=== PATIENT | female | born 1955 | race Caucasian/White ===

== ENCOUNTER → 2017-09-24 | Outpatient (CLI) | payer OTHER ==
--- NOTE | 2017-09-24 11:37 | RAD ---
Thyroid ultrasound 09/24/2017 Clinical indication: Six-month follow-up of right thyroid nodule. Comparison: None. Findings: AP thickness of isthmus: 0.5 cm. There is a hypoechoic nodule at the far left aspect of the isthmus with no internal vascularity measuring 0.4 x 0.4 x 0.3 cm. Left lobe of the thyroid measures 5.4 x 1.7 x 1.7 cm. There is diffuse heterogeneity and hypervascularity throughout the left lobe. At the superior aspect of the left lobe, there is a hypoechoic nodule with punctate echogenicity demonstrating ringdown artifact and no internal vascularity measuring 0.7 x 0.7 x 0.5 cm. Right lobe of the thyroid measures 6.2 x 1.9 x 1.8 cm. There is diffuse heterogeneity and hypervascularity throughout the right lobe. At the inferior aspect, there is an isoechoic nodule with internal vascularity measuring 1.1 x 1.1 x 0.7 cm. Impression: 1. Bilateral thyroid heterogeneity and increased vascularity can be seen with thyroiditis such as Graves or nonspecific thyroiditis. 2. Bilateral and isthmus thyroid nodules, one on the left may represent a colloid cyst, and the dominant on the right measures up to 1.1 cm and is indeterminate. Follow-up thyroid ultrasound in 9 months is recommended.
== END | disposition home or self-care (01) ==
LOC: US 07:56
PROVIDERS: ATTEND General Practice
DX: E03.9 Hypothyroidism, unspecified (principal); E04.2 Nontoxic multinodular goiter
CPT/HCPCS: 76536